=== PATIENT | male | born 1990 | race Caucasian/White ===

== ENCOUNTER 2024-11-02 03:43 | Emergency (ER) | payer OTHER ==
[~2024-11-02] VITALS: Ht 172.7 cm; Wt 80.7 kg
[~2024-11-02 03:43] MED LIST: ALBU90OI INH; AMOCLA875 PO; ARIP15 PO; AZIT250 PO; CEPH250SUA PO; CODACEE120 PO; DIPH25 PO; DULO60 PO; GABA100 PO; HYDACE10B PO; HYDACE5325 PO; HYDR1TAB94 PO; METPHE27ER; OLAN5A MM; OXYACE5T PO; PENVK250 PO; PROACE100; PROM25 PO; PROM6.25SY PO; Veetids 500500 MG PO
[2024-11-02] MEDS ORDERED: FentaNYL Citrate 50 MCG/ML 2 ML Injection IV ONE (05:15)
== END 2024-11-02 08:07 | disposition home or self-care (01) ==
LOC: ER 03:43
DX: S28.0XXA Crushed chest, initial encounter (principal); S00.511A Abrasion of lip, initial encounter; S03.2XXA Dislocation of tooth, initial encounter; S02.5XXA Fracture of tooth (traumatic), initial encounter for closed fracture; R51.9 Headache, unspecified; F17.200 Nicotine dependence, unspecified, uncomplicated; W20.8XXA Other cause of strike by thrown, projected or falling object, initial encounter
CPT/HCPCS: 70450; 70486; 71046; 71260; 99285-25; Q9967